=== PATIENT | male | born 1965 | race Caucasian/White ===

== ENCOUNTER 2017-01-07 12:23 | Inpatient (IN) | payer MEDICARE, MEDICAID ==
[~2017-01-07] VITALS: Ht 175.3 cm; Wt 67.7 kg
[~2017-01-07 12:23] MED LIST: AZIT250T74 PO; BISA10SU8 PR; CEFU1TAB43 PO; HYDR-3534 PO; JEVILIQ10 JT; LACT PO; OMEP20TA39 PO; ONDA8 SL
[2017-01-07 12:40] VITALS: BP 125/71; PULSE 79; RESP 16; TEMP 98.4; O2SAT 95
[2017-01-07] MEDS ORDERED: AMOX500C PO (13:01)
[2017-01-07] MEDS ORDERED: HYDR1ELX PO (13:01)
[2017-01-07] MEDS ORDERED: DULC10SU3 RECTAL (13:06)
[2017-01-07] MEDS ORDERED: NEXI20CA PO (13:06)
[2017-01-07] MEDS ORDERED: OXYC1SOL3 GT (13:06)
[2017-01-07] MEDS ORDERED: HYDR-3535 PO (13:06)
--- NOTE | 2017-01-07 13:23 | PD ---
HPI Chief Complaint: Edema Time Seen by Provider: 13:06 Travel History International Travel<30 days: No Contact w/Intl Traveler<30days: No Traveled to known affect area: No History of Present Illness HPI This patient complains of swelling to the right side of his neck and face. Duration 4 days. He continues to worsen despite antibiotics. He has history of head and neck cancer which she has found on biopsy has reoccurred. He gets treatment at [facility]. He had a tracheostomy placed 2 weeks ago at [facility]. He was on Levaquin and clindamycin for a full week when this right sided swelling started. He has not had any fever that they know about. Severity of symptoms is moderate. No alleviating factors. Saw his primary physician 3 days ago and started on amoxicillin which has not helped PFSH Past Medical History Asthma: No Blood Disorders: No Anxiety: Yes Cancer: Yes (LARYNGEAL) Cardiovascular Problems: No Chemotherapy: Yes (2016) COPD: Yes Diminished Hearing: Yes (RT EAR) Gastrointestinal Disorders: Yes (gerd) Glaucoma: No Genitourinary: No Implanted Vascular Access Dvce: No Neurologic: No Psychiatric: No Respiratory: Yes (COPD) Radiation Therapy: No Sleep Apnea: No Past Surgical History Cardiac Surgery: No Ear Surgery: No Endocrine Surgery: No Eye Surgery: No Genitourinary Surgery: No Gynecologic Surgery: No Neurologic Surgery: Yes (LAMINECTOMY) Oral Surgery: No Thoracic Surgery: No Other Surgery: Yes (HEMANGIOMA R HAND) Social History Alcohol Use: No (PT DENIES) Tobacco Use: No Substance Use: No (PT DENIES) Allergies-Medications (Allergen,Severity, Reaction): Coded Allergies: No Known Allergies (Verified , 01/07/17) Reported Meds & Prescriptions Reported Meds & Active Scripts Active Reported Nexium (Esomeprazole DR) 20 Mg Capdr 20 Mg PO DAILY Dulcolax Supp (Bisacodyl) 10 Mg Supp 10 Mg RECTAL DAILY PRN Oxycodone Liq (Oxycodone HCl) 5 Mg/5 Ml Yola 5 Mg GT Q4HRS Lortab (Hydrocodone-Acetaminophen) 10-325 Mg Tab 1-2 Tab PO Q4-6HRS PRN Amoxicillin 500 Mg Cap Unknown Dose PO BID Review of Systems General / Constitutional: No: Fever Eyes: No: Visual changes HENT: No: Headaches Cardiovascular: No: Chest Pain or Discomfort Respiratory: No: Shortness of Breath Gastrointestinal: No: Abdominal Pain Genitourinary: No: Dysuria Musculoskeletal: No: Pain Skin: No Rash Neurologic: No: Weakness Psychiatric: No: Depression Endocrine: No: Polydipsia Hematologic/Lymphatic: No: Easy Bruising Physical Exam Narrative GENERAL: Well-nourished, well-developed patient with facial and neck swelling. SKIN: Warm and dry. HEAD: Atraumatic. Normocephalic. EYES: Pupils equal and round. No scleral icterus. No injection or drainage. ENT: No nasal bleeding or discharge. Mucous membranes pink and moist. Patient has a tracheostomy in place. He has a lot of redness and swelling and induration on the right cheek and right side of the neck. It does come around to the submental region. He cannot open his mouth very much. He will not allow me to evaluate with tongue depressor. I cannot fully evaluate his uvula. NECK: Trachea midline. No JVD. CARDIOVASCULAR: Regular rate and rhythm. No murmur appreciated. RESPIRATORY: No accessory muscle use. Clear to auscultation. Breath sounds equal bilaterally. GASTROINTESTINAL: Abdomen soft, non-tender, nondistended. Hepatic and splenic margins not palpable. MUSCULOSKELETAL: No obvious deformities. No clubbing. No cyanosis. No edema. NEUROLOGICAL: Awake and alert. No obvious cranial nerve deficits. Motor grossly within normal limits. Normal speech. PSYCHIATRIC: Appropriate mood and affect; insight and judgment normal. Data Data Last Documented VS Vital Signs Date Time Temp Pulse Resp B/P Pulse Ox O2 Delivery O2 Flow Rate FiO2 01/07/17 13:53 63 18 105/53 96 01/07/17 12:51 Room Air 01/07/17 12:40 98.4 Orders Iv Access Insert/Monitor (01/07/17 13:18) Complete Blood Count With Diff (01/07/17 13:18) Basic Metabolic Panel (Bmp) (01/07/17 13:18) Prothrombin Time / Inr (Pt) (01/07/17 13:18) Act Partial Throm Time (Ptt) (01/07/17 13:18) Ct Soft Tiss Neck W Iv Cont (01/07/17 ) Iohexol 350 Inj (Omnipaque 350 Inj) (01/07/17 14:39) Admit Order (Ed Use Only) (01/07/17 15:13) Methylprednisolone So Succ Inj (Solumedr (01/07/17 15:15) Vancomycin Inj (Vancomycin Inj) (01/07/17 15:15) Ct Thorax/ Chest W Iv Contrast (01/07/17 ) Labs Laboratory Tests Test 01/07/17 12:55 White Blood Count 5.9 TH/MM3 Red Blood Count 3.02 MIL/MM3 Hemoglobin 8.4 GM/DL Hematocrit 25.4 % Mean Corpuscular Volume 84.1 FL Mean Corpuscular Hemoglobin 27.8 PG Mean Corpuscular Hemoglobin 33.0 % Concent Red Cell Distribution Width 15.2 % Platelet Count 411 TH/MM3 Mean Platelet Volume 6.9 FL Neutrophils (%) (Auto) 77.7 % Lymphocytes (%) (Auto) 12.8 % Monocytes (%) (Auto) 5.7 % Eosinophils (%) (Auto) 1.1 % Basophils (%) (Auto) 2.7 % Neutrophils # (Auto) 4.5 TH/MM3 Lymphocytes # (Auto) 0.8 TH/MM3 Monocytes # (Auto) 0.3 TH/MM3 Eosinophils # (Auto) 0.1 TH/MM3 Basophils # (Auto) 0.2 TH/MM3 CBC Comment AUTO DIFF Differential Comment AUTO DIFF CONFIRMED Prothrombin Time 11.2 SEC Prothromb Time International 1.0 RATIO Ratio Activated Partial 29.4 SEC Thromboplast Time Sodium Level 135 MEQ/L Potassium Level 4.1 MEQ/L Chloride Level 94 MEQ/L Carbon Dioxide Level 34.8 MEQ/L Anion Gap 6 MEQ/L Blood Urea Nitrogen 30 MG/DL Creatinine 1.00 MG/DL Estimat Glomerular Filtration 78 ML/MIN Rate Random Glucose 100 MG/DL Calcium Level 8.7 MG/DL [facility] Medical Decision Making Medical Screen Exam Complete: Yes Emergency Medical Condition: Yes Medical Record Reviewed: Yes Differential Diagnosis Victor M's angina, facial cellulitis, abscess Narrative Course I have reviewed the patient's electronic medical record. Reviewed his radiation oncologist note from June 2016 IV placed CBC shows anemia which is chronic. Metabolic profile shows BUN 30 and creatinine of 1 Coagulation studies are normal Soft tissue CT of the neck with IV contrast showed diffuse edematous change without fluid collection or abscess Also shows mass density in the chest which would be consistent with metastatic disease Patient has worsening of neck edema despite oral antibiotics Not sure this is infectious at all. He has no leukocytosis or fever. There is concern for some SVC syndrome. I've ordered a chest CT with IV contrast His airway is secured with trach Reviewed with hospitalist will admit I gave a dose of vancomycin and Solu-Medrol and 1 L normal saline IV as he is receiving a lot of contrast Diagnosis Primary Impression: Swelling, mass, or lump in head and neck Additional Impression: Hypopharyngeal cancer Admitting Information Admitting Physician Requests: Admit Brown Robbins MD Jan 07, 2017 13:23
[2017-01-07 13:36] LABS: AUTOMATED NEUTROPHIL # 4.5 TH/MM3 (1.8-7.7); BASOPHIL # 0.2 TH/MM3 (0-0.2); BASOPHIL % 2.7 % (0.0-2.0); EOSINOPHIL # 0.1 TH/MM3 (0-0.4); EOSINOPHIL % 1.1 % (0.0-4.0); HEMATOCRIT 25.4 % (39.0-51.0); LYMPH % 12.8 % (9.0-44.0); LYMPHOCYTE # 0.8 TH/MM3 (1.0-4.8); MEAN CELL VOLUME 84.1 FL (80.0-100.0); MEAN CORPUSCULAR HEMOGLOBIN 27.8 PG (27.0-34.0); MONO % 5.7 % (0.0-8.0); NEUT % 77.7 % (16.0-70.0); PLATELET COUNT 411 TH/MM3 (150-450); RED BLOOD COUNT 3.02 MIL/MM3 (4.50-5.90); RED CELL DISTRIBUTION WIDTH 15.2 % (11.6-17.2); WHITE BLOOD COUNT 5.9 TH/MM3 (4.0-11.0)
[2017-01-07 13:42] LABS: POTASSIUM 4.1 MEQ/L (3.5-5.1)
[2017-01-07 13:45] LABS: BICARBONATE 34.8 MEQ/L (21.0-32.0)
[2017-01-07 13:46] LABS: APTT (PATIENT) 29.4 SEC (24.3-30.1); PROTHROMBIN TIME - PATIENT 11.2 SEC (9.8-11.6)
[2017-01-07 13:47] LABS: HEMO FLAGS AUTO DIFF
[2017-01-07 13:53] VITALS: BP 105/53; PULSE 63; RESP 18; O2SAT 96
[2017-01-07 14:07] LABS: SCAN/DIFF AUTO DIFF CONFIRMED
[2017-01-07] MEDS ORDERED: IOHEXOL 350 MG/ML 10 ML VIAL (for RAD DIAG) IV ONE (14:39)
--- NOTE | 2017-01-07 14:51 | RADHPO ---
EXAM DATE/TIME: 01/07/2017 14:22 [facility] COMPARISON: No previous studies available for comparison. INDICATIONS : Right face and neck swelling and pain. Evaluate for abscess. IV CONTRAST: 65 cc Omnipaque 350 (iohexol) IV RADIATION DOSE: 13.03 CTDIvol (mGy) MEDICAL HISTORY : Throat cancer. SURGICAL HISTORY : Tracheostomy. ENCOUNTER: Initial ACUITY: 3 days PAIN SCALE: 8/10 LOCATION: Right neck TECHNIQUE: Volumetric scanning of the neck was performed. Using automated exposure control and adjustment of th e mA and/or kV according to patient size, radiation dose was kept as low as reasonably achievable to obtain optimal diagnostic quality images. FINDINGS: Diffuse edema is seen throughout the neck and face. This is more abundant on the right. There is also edema circumferential in nature involving the pharynx. This causes luminal narrowing of the pharynge al lumen this patient has a tracheostomy tube in place. No abscess is observed. Adenopathy is noted i nvolving the superior and anterior mediastinum. The largest lymph node is posterior to the SVC measur ing 3.4 x 1.9 cm. Severe bullous emphysematous changes are noted within the visualized lung apices. T here is a pleural-based density seen on the barium last image of the exam within the left anterior ch est. CONCLUSION: 1. Diffuse edema throughout the face and neck including pharyngeal edema resulting in narrowing of th e lumen of the pharynx. This patient has a tracheostomy tube. No abscess. 2. Adenopathy involving the superior and anterior mediastinum worrisome for metastatic disease. I hav e no priors to compare. 3. Bolus emphysematous changes within the lung apices. 4. Pleural-based masslike density seen on the last image of the exam within the left upper chest. CT the chest would be needed to further evaluate this. Baldemar Scott Jr., MD on January 07, 2017 at 14:44 Board Certified Radiologist. This report was verified electronically.
[2017-01-07] MEDS ORDERED: methylPREDNISolone SOD SUCC 125 MG/2 ML VIAL IV PUSH ONE (15:15)
[2017-01-07] MEDS ORDERED: VANCOMYCIN INJ 1,000 MG in SODIUM CHLOR 0.9% 250 ML INJ 250 ML IV ONE (15:15)
[2017-01-07] MEDS ORDERED: SODIUM CHLOR 0.9% 1000 ML INJ 1,000 ML IV ONE (15:30)
[2017-01-07] MEDS ORDERED: ACETAMINOPHEN/HYDROcodone 325 MG/10 MG TAB G-TUBE ONE (16:15)
[2017-01-07 16:16] VITALS: BP 119/55
[2017-01-07] MEDS ORDERED: ACETAMINOPHEN/HYDROcodone 325 MG/5 MG TAB PEG PRN (16:45)
[2017-01-07] MEDS ORDERED: ONDANSETRON HCL 4 MG/2 ML VIAL IVP PRN (16:45)
[2017-01-07] MEDS ORDERED: ACETAMINOPHEN 325 MG TAB PEG PRN (16:45)
[2017-01-07] MEDS ORDERED: Vancomycin Consult Pharmacy 1 EA OTHER SCH (16:45)
[2017-01-07] MEDS ORDERED: SODIUM CHLORIDE 0.9% FLUSH 5 ML FLUSH FLUSH PRN (16:45)
[2017-01-07] MEDS ORDERED: MAGNESIUM HYDROXIDE SUSP 30 ML CUP PO PRN (16:45)
[2017-01-07] MEDS ORDERED: MORPHINE SULFATE 4 MG/ML INJ IV PRN (16:45)
[2017-01-07] MEDS ORDERED: NALOXONE HCL 0.4 MG/ML AMP IV PRN (16:45)
[2017-01-07 17:04] VITALS: BP 116/70; PULSE 70; RESP 18; TEMP 97.8; O2SAT 97
[2017-01-07] MEDS: SODIUM CHLOR 0.9% 1000 ML INJ 1,000 ML IV SCH (17:05)
--- NOTE | 2017-01-07 17:28 | RADHPO ---
EXAM DATE/TIME: 01/07/2017 16:51 [facility] COMPARISON: No previous studies available for comparison. INDICATIONS : Mass. RADIATION DOSE: 7.81 CTDIvol (mGy) MEDICAL HISTORY : Chronic obstructive pulmonary disease. Laryngeal cancer. SURGICAL HISTORY : Tracheostomy. ENCOUNTER: Initial ACUITY: 3 days PAIN SCALE: 0/10 LOCATION: chest TECHNIQUE: Volumetric scanning of the chest was performed. Using automated exposure control and adjustment of t he mA and/or kV according to patient size, radiation dose was kept as low as reasonably achievable to obtain optimal diagnostic quality images. FINDINGS: No prior chest CT for comparison. Tracheostomy tube present with tip in satisfactory position. There is moderate emphysema of the left lung especially at the apex. Right lung apex reveals fairly e xtensive bullous changes with surrounding consolidation and air bronchograms. There is also dense con solidation in the left lower lung with several small areas of loculated air within the consolidation that probably represents small lung abscesses. There is patchy airspace disease in both lungs especia lly at the left base and lingular region. There is trace left pleural fluid and pericardial fluid. Mediastinal adenopathy with a 1.9 cm right paratracheal lymph node and borderline enlarged precarinal and subcarinal lymph nodes. No acute findings in the upper abdomen. Gastrostomy tube present. Residual contrast in kidneys. CONCLUSION: 1. Multifocal airspace consolidation in the lungs. This is most severe in the superior segment left l ower lobe with air bronchograms and numerous small locules of air that could represent small abscesse s. There is also dense consolidation around bullous disease at the right lung apex and patchy airspac e disease in the anterior segment left upper lobe and also in the lingula and left lower lobe basilar segments. 2. Moderate emphysema. Tracheostomy in satisfactory position. 3. Mediastinal adenopathy with a 1.9 cm right paratracheal lymph node. Anoop Cornejo MD on January 07, 2017 at 17:17 Board Certified Radiologist. This report was verified electronically.
--- NOTE | 2017-01-07 17:36 | HHI.HP ---
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 History is obtained per the patient and his at bedside. Patient states that he underwent a tracheostomy tube weeks ago at [facility] and was placed on Levaquin and clindamycin prophylactically to prevent infection. He was almost finished with those antibiotics when on Wednesday 4 days prior to admission he started to develop swelling of his cheek as well as redness and pain. He states that the redness comes and goes but the swelling has remained and is painful. He saw his primary care physician on Wednesday who prescribed him amoxicillin. However the patient was not improving so he came to the ER. He denies fever or chills. The patient denies any dental pain. The patient has a PEG tube and is strictly nothing by mouth. The patient was recently reevaluated at [facility] and sees an ENT doctor by the name of Dr. HERNANDEZ" office phone number [phone]. The patient last underwent radiation in March 2016. Apparently in 2014 he had been offered a radical laryngectomy however opted to go with radiation. He was seen by Dr. Guadarrama via an his office in March 2016 and at that point was planning to follow-up with [facility]. The patient states he's not had any further radiation since then but has had 2 hospitalizations for aspiration pneumonia. He states the PEG was placed in 2015. The patient also states that he tends to have bleeding from the trach site and that he will cough up blood whenever he takes Motrin. Patient denies any dyspnea. The patient states that Dr. Zenon Brice is planning on doing a laryngectomy on January 22 if the patient can put on 10 pounds of weight by then. He has been taking Jevity TwoCal in order to gain weight and states it has been working. The patient states that he recently had workup which excluded any kind of mass in his lungs however neck CT here showed possible left upper lobe neck mass and I have ordered a chest CT to evaluate. Past Family Social History Past Surgical History PEG Tracheostomy 2 weeks ago [id number] which was removed in 2009 Allergies: Coded Allergies: No Known Allergies (Verified , 01/07/17) Physical Exam Vital Signs Vital Signs Date Time Temp Pulse Resp B/P Pulse Ox O2 Delivery O2 Flow Rate FiO2 01/07/17 17:04 97.8 70 18 116/70 97 01/07/17 16:16 112 16 119/55 93 01/07/17 13:53 63 18 105/53 96 01/07/17 12:51 16 95 Room Air 01/07/17 12:40 98.4 79 16 125/71 95 Physical Exam GENERAL: Lean male patient. SKIN: Warm and dry. HEAD: Normocephalic. EYES: No scleral icterus. No injection or drainage. Head and neck : He has swelling of the right cheek and induration of the jawline and right neck with some erythema over the neck and he is tender to palpation. He is able to open his mouth and he has caries however no obvious abscesses. Tracheostomy in place and the os appears clean. trachea is midline. CARDIOVASCULAR: Regular rate and rhythm without murmurs, gallops, or rubs. RESPIRATORY: Breath sounds equal bilaterally. No accessory muscle use. GASTROINTESTINAL: Abdomen soft, non-tender, nondistended. EXTREMITIES: No cyanosis, or edema. NEUROLOGICAL: Awake, alert, and oriented x 3. Non-focal. Laboratory Laboratory Tests Test 01/07/17 12:55 White Blood Count 5.9 Red Blood Count 3.02 Hemoglobin 8.4 Hematocrit 25.4 Mean Corpuscular Volume 84.1 Mean Corpuscular Hemoglobin 27.8 Mean Corpuscular Hemoglobin 33.0 Concent Red Cell Distribution Width 15.2 Platelet Count 411 Mean Platelet Volume 6.9 Neutrophils (%) (Auto) 77.7 Lymphocytes (%) (Auto) 12.8 Monocytes (%) (Auto) 5.7 Eosinophils (%) (Auto) 1.1 Basophils (%) (Auto) 2.7 Neutrophils # (Auto) 4.5 Lymphocytes # (Auto) 0.8 Monocytes # (Auto) 0.3 Eosinophils # (Auto) 0.1 Basophils # (Auto) 0.2 CBC Comment AUTO DIFF Differential Comment AUTO DIFF CONFIRMED Prothrombin Time 11.2 Prothromb Time International 1.0 Ratio Activated Partial 29.4 Thromboplast Time Sodium Level 135 Potassium Level 4.1 Chloride Level 94 Carbon Dioxide Level 34.8 Anion Gap 6 Blood Urea Nitrogen 30 Creatinine 1.00 Estimat Glomerular Filtration 78 Rate Random Glucose 100 Calcium Level 8.7 Result Diagram: 01/07/17 1255 01/07/17 1255 Assessment and Plan Assessment and Plan -Cellulitis and swelling of the right face and neck. Neck CT showed subcutaneous edema and no abscess. He has no swelling of the arms to suggest superior vena cava syndrome. -Squamous cell laryngeal neck cancer. The patient states that Dr. Zenon Brice is planning on doing a laryngectomy on January 22 if the patient can put on 10 pounds of weight by then. He has been taking Jevity TwoCal in order to gain weight and states it has been working. The patient states that he recently had workup which excluded any kind of mass in his lungs however neck CT here showed possible left upper lobe neck mass and I have ordered a chest CT to evaluate. -Dysphagia and moderate malnutrition. Continue tube feeds. -Continue pain control with Lortab. The PEG. -Emphysema/COPD. Not currently an issue. -Anemia. We'll repeat CBC in the morning to ensure stability. -DVT prophylaxis with SCDs. Full CODE STATUS. Amira Jett MD Jan 07, 2017 17:36
[2017-01-07 20:00] VITALS: BP 124/68; PULSE 80; RESP 20; TEMP 98.5; O2SAT 99
[2017-01-07] MEDS: DEXAMETHASONE SOD PHOS 4 MG/ML VIAL IV PUSH SCH (20:22)
[2017-01-07] MEDS: DOCUSATE SODIUM 100 MG CAP PEG SCH (20:23)
[2017-01-07] MEDS: ACETAMINOPHEN/HYDROcodone 325 MG/10 MG TAB PEG PRN (20:23)
[2017-01-07] MEDS: SODIUM CHLORIDE 0.9% FLUSH 5 ML FLUSH FLUSH SCH (20:23)
[2017-01-08] VITALS: BP 103/59; PULSE 65; RESP 20; TEMP 98.7; O2SAT 99
[2017-01-08] MEDS: ACETAMINOPHEN/HYDROcodone 325 MG/10 MG TAB PEG PRN ×4 (02:24→21:34)
[2017-01-08] MEDS: SODIUM CHLOR 0.9% 1000 ML INJ 1,000 ML IV SCH ×3 (02:36→22:36)
[2017-01-08 06:41] LABS: AUTOMATED NEUTROPHIL # 4.8 TH/MM3 (1.8-7.7); BASOPHIL % 0.1 % (0.0-2.0); EOSINOPHIL % 0.1 % (0.0-4.0); HEMATOCRIT 24.2 % (39.0-51.0); HEMO FLAGS DIFF FINAL; LYMPH % 9.1 % (9.0-44.0); LYMPHOCYTE # 0.5 TH/MM3 (1.0-4.8); MEAN CELL VOLUME 84.8 FL (80.0-100.0); MEAN CORPUSCULAR HEMOGLOBIN 27.6 PG (27.0-34.0); MEAN CORPUSCULAR HGB CONC 32.6 % (32.0-36.0); MONO % 1.1 % (0.0-8.0); NEUT % 89.6 % (16.0-70.0); PLATELET COUNT 458 TH/MM3 (150-450); RED BLOOD COUNT 2.86 MIL/MM3 (4.50-5.90); RED CELL DISTRIBUTION WIDTH 15.6 % (11.6-17.2); WHITE BLOOD COUNT 5.4 TH/MM3 (4.0-11.0)
[2017-01-08 06:51] LABS: POTASSIUM 4.3 MEQ/L (3.5-5.1)
[2017-01-08 06:53] LABS: BICARBONATE 31.3 MEQ/L (21.0-32.0)
[2017-01-08 08:00] VITALS: BP 98/61; PULSE 61; RESP 20; TEMP 96.9; O2SAT 96
[2017-01-08] MEDS: SODIUM CHLORIDE 0.9% FLUSH 5 ML FLUSH FLUSH SCH ×2 (08:48→21:00)
[2017-01-08] MEDS: DEXAMETHASONE SOD PHOS 4 MG/ML VIAL IV PUSH SCH ×2 (08:49→21:35)
[2017-01-08] MEDS: VANCOMYCIN 1,000 MG/NS 250 ML IV SCH ×2 (08:49)
[2017-01-08] MEDS: DOCUSATE SODIUM 100 MG CAP PEG SCH ×2 (08:51→21:34)
[2017-01-08] MEDS: PANTOPRAZOLE SOD 20 MG DELAYED RELEASE TAB PO SCH (08:51)
[2017-01-08 12:00] VITALS: BP 112/69; PULSE 74; RESP 20; TEMP 97.8; O2SAT 96
[2017-01-08] MEDS: AMPICILLIN-SULBACTAM INJ 3 GM in SODIUM CHLORIDE 0.9% INJ 100 ML IV SCH ×2 (14:01→21:34)
[2017-01-08 16:00] VITALS: BP 124/68; PULSE 77; RESP 20; TEMP 97.2; O2SAT 100
--- NOTE | 2017-01-08 16:12 | HHI.PR ---
Subjective Remarks Late entry. Patient was seen several times this afternoon. The patient denies fever or chills. He states his facial swelling is improved and the pain is greatly improved. He denies dyspnea. Objective Vitals Vital Signs Date Time Temp Pulse Resp B/P Pulse Ox O2 Delivery O2 Flow Rate FiO2 01/08/17 12:00 97.8 74 20 112/69 96 01/08/17 08:00 96.9 61 20 98/61 96 01/08/17 00:00 98.7 65 20 103/59 99 01/07/17 20:00 98.5 80 20 124/68 99 01/07/17 17:04 97.8 70 18 116/70 97 01/07/17 16:16 112 16 119/55 93 I/O 01/07/17 01/07/17 01/07/17 01/08/17 01/08/17 01/08/17 07:00 15:00 23:00 07:00 15:00 23:00 Intake Total 1310 ml 0 ml Balance 1310 ml 0 ml Intake Oral 60 ml 0 ml IV Total 1250 ml # Voids 3 1 # Bowel Movements 0 1 Result Diagram: 01/08/17 0600 01/08/17 0600 Imaging Last Impressions Neck CT 01/07/17 0000 Signed Impressions: Service Date/Time: December 14:22 - CONCLUSION: 1. Diffuse edema throughout the face and neck including pharyngeal edema resulting in narrowing of the lumen of the pharynx. This patient has a tracheostomy tube. No abscess. 2. Adenopathy involving the superior and anterior mediastinum worrisome for metastatic disease. I have no priors to compare. 3. Bolus emphysematous changes within the lung apices. 4. Pleural-based masslike density seen on the last image of the exam within the left upper chest. CT the chest would be needed to further evaluate this. Baldemar Scott Jr., MD Chest CT 01/07/17 0000 Signed Impressions: Service Date/Time: December 16:51 - CONCLUSION: 1. Multifocal airspace consolidation in the lungs. This is most severe in the superior segment left lower lobe with air bronchograms and numerous small locules of air that could represent small abscesses. There is also dense consolidation around bullous disease at the right lung apex and patchy airspace disease in the anterior segment left upper lobe and also in the lingula and left lower lobe basilar segments. 2. Moderate emphysema. Tracheostomy in satisfactory position. 3. Mediastinal adenopathy with a 1.9 cm right paratracheal lymph node. Anoop Cornejo MD Objective Remarks GENERAL: Lean male patient. SKIN: Warm and dry. HEAD: Normocephalic. EYES: No scleral icterus. No injection or drainage. Head and neck : He has swelling of the right cheek and induration of the jawline and right neck however this is greatly decreased today and the erythema over the neck and jawline is nearly resolved. He is also less tender to palpation. Tracheostomy in place and the os appears clean. trachea is midline. CARDIOVASCULAR: Regular rate and rhythm without murmurs, gallops, or rubs. RESPIRATORY: Breath sounds equal bilaterally. No accessory muscle use. GASTROINTESTINAL: Abdomen soft, non-tender, nondistended. EXTREMITIES: No cyanosis, or edema. NEUROLOGICAL: Awake, alert, and oriented x 3. Non-focal. A/P Assessment and Plan -Cellulitis and swelling of the right face and neck. Neck CT showed subcutaneous edema and no abscess. Clinically much improved today. Continue vancomycin. -Squamous cell laryngeal neck cancer. The patient states that Dr. Zenon Brice is planning on doing a laryngectomy on January 22 if the patient can put on 10 pounds of weight by then. I discussed the patient with his ear nose and throat surgeon today Dr. HERNANDEZ" (Allan) at [facility] phone number [phone]. -Aspiration pneumonia. Chest CT showing multifocal airspace consolidations most pronounced in the left lower lobe and RUL, also severe bullous emphysema, also numerous small locules of air that could represent small abscesses. The patient does have productive cough but no dyspnea or leukocytosis. I will start him on ampicillin and sulfabactam IV and continue the vancomycin IV. We' ll check a sputum culture. I did discuss with radiology Dr. Slim Jesus who did not feel that the lesions on the chest CT were abscesses and for not large enough to drain and the patient would certainly be high risk for a thoracentesis given his bullous emphysema. I discussed as well with his ear nose and throat physician Dr. VALADEZ at [facility] and we will plan for a four-week course of antibiotics, and I will check a sputum culture. If he does not improve with antibiotic therapy he may need a bronchoscopy. Dr. STEPHENS we'll see him in his clinic about a week before his surgery is due and will repeat imaging at that time. -Dysphagia and moderate malnutrition. Continue tube feeds. -Continue pain control with Lortab. -Emphysema/COPD. Not currently an issue. -Anemia. We'll repeat CBC in the morning. Transfuse when necessary hemoglobin less than 7. I will check an iron profile. -DVT prophylaxis with SCDs. Full CODE STATUS. Amira Jett MD Jan 08, 2017 16:12
[2017-01-08 20:00] VITALS: BP 115/68; PULSE 70; RESP 18; TEMP 98.1; O2SAT 97
[2017-01-09] VITALS: BP 121/72; PULSE 68; RESP 18; TEMP 97.8; O2SAT 96
[2017-01-09] MEDS: AMPICILLIN-SULBACTAM INJ 3 GM in SODIUM CHLORIDE 0.9% INJ 100 ML IV SCH ×2 (02:29→07:55)
[2017-01-09] MEDS: ACETAMINOPHEN/HYDROcodone 325 MG/10 MG TAB PEG PRN ×5 (02:29→22:49)
[2017-01-09] MEDS: VANCOMYCIN 1,000 MG/NS 250 ML IV SCH ×2 (03:44)
[2017-01-09] MEDS: SODIUM CHLOR 0.9% 1000 ML INJ 1,000 ML IV SCH (07:56)
[2017-01-09] MEDS: DEXAMETHASONE SOD PHOS 4 MG/ML VIAL IV PUSH SCH (07:57)
[2017-01-09 08:00] VITALS: BP 131/73; PULSE 65; RESP 17; TEMP 98.5; O2SAT 98
[2017-01-09] MEDS: DOCUSATE SODIUM 100 MG CAP PEG SCH ×2 (09:00→20:40)
[2017-01-09] MEDS: SODIUM CHLORIDE 0.9% FLUSH 5 ML FLUSH FLUSH SCH ×2 (09:00→20:42)
[2017-01-09] MEDS: PANTOPRAZOLE SOD 20 MG DELAYED RELEASE TAB PO SCH (09:00)
[2017-01-09 12:00] VITALS: BP 130/70; PULSE 71; RESP 19; TEMP 98.2; O2SAT 95
--- NOTE | 2017-01-09 13:38 | HHI.PR ---
Subjective Remarks Patient is doing well. He states the swelling erythema and pain of the right side of his face have resolved. Objective Vitals Vital Signs Date Time Temp Pulse Resp B/P Pulse Ox O2 Delivery O2 Flow Rate FiO2 01/09/17 12:00 98.2 71 19 130/70 95 01/09/17 08:55 20 01/09/17 08:00 98.5 65 17 131/73 98 01/09/17 00:00 97.8 68 18 121/72 96 01/08/17 20:00 98.1 70 18 115/68 97 01/08/17 16:00 97.2 77 20 124/68 100 I/O 01/08/17 01/08/17 01/08/17 01/09/17 01/09/17 01/09/17 07:00 15:00 23:00 07:00 15:00 23:00 Intake Total 0 ml 360 ml Balance 0 ml 360 ml Intake Oral 0 ml 360 ml # Voids 1 5 # Bowel Movements 1 0 Result Diagram: 01/08/17 0601/08/17 0600 Objective Remarks GENERAL: Lean male patient. SKIN: Warm and dry. HEAD: Normocephalic. EYES: No scleral icterus. No injection or drainage. Head and neck : The previous swelling of the right cheek and jaw have essentially resolved. No further erythema. He does have hardening of the skin of the right superior neck which he states is chronic and at the site of the initial cancer. No tenderness to palpation. Tracheostomy in place and the os appears clean. trachea is midline. CARDIOVASCULAR: Regular rate and rhythm without murmurs, gallops, or rubs. RESPIRATORY: Breath sounds equal bilaterally. Lung sounds are clear bilaterally. No accessory muscle use. GASTROINTESTINAL: Abdomen soft, non-tender, nondistended. EXTREMITIES: No cyanosis, or edema. NEUROLOGICAL: Awake, alert, and oriented x 3. Non-focal. A/P Assessment and Plan -Cellulitis and swelling of the right face and neck. Essentially resolved today. Neck CT showed subcutaneous edema and no abscess. Discontinue vancomycin. Start Zyvox by mouth. Patient failed outpatient treatment with amoxicillin and clindamycin thus MRSA is suspected. -Squamous cell laryngeal neck cancer. The patient states that Dr. Zenon Brice is planning on doing a laryngectomy on January 22 if the patient can put on 10 pounds of weight by then. I discussed the patient with his ear nose and throat surgeon Dr. HERNANDEZ" (Allan) at [facility] phone number [phone]. -Aspiration pneumonia. Chest CT showing multifocal airspace consolidations most pronounced in the left lower lobe and RUL, also severe bullous emphysema, also numerous small locules of air that could represent small abscesses. The patient does have productive cough but no dyspnea or leukocytosis. Follow-up sputum culture. I did discuss with radiology Dr. Slim Jesus who did not feel that the lesions on the chest CT were abscesses and for not large enough to drain and the patient would certainly be high risk for a thoracentesis given his bullous emphysema. I discussed as well with his ear nose and throat physician Dr. STEPHENS at [facility] and we will plan for a four-week course of antibiotics with Augmentin by mouth, and I will check a sputum culture. Dr. STEPHENS we'll see him in his clinic about a week before his surgery is due and will repeat imaging at that time. -Dysphagia and moderate malnutrition. Continue tube feeds. -Continue pain control with Lortab. -Emphysema/COPD. Not currently an issue. -Anemia. Iron profile and ferritin are pending. Repeat hemoglobin today and in the morning. Transfuse when necessary hemoglobin less than 7. -DVT prophylaxis with SCDs. Full CODE STATUS. Discharge Planning Discharge home in 1-2 days anticipated. Amira Jett MD Jan 09, 2017 13:37
[2017-01-09] MEDS ORDERED: ZYVO600T PO (14:40)
[2017-01-09] MEDS: AMOXICILLIN/CLAVULANATE K 875 MG TAB PO SCH ×2 (15:14→20:40)
[2017-01-09 16:00] VITALS: BP 128/80; PULSE 81; RESP 20; TEMP 97.8; O2SAT 94
[2017-01-09 16:50] LABS: TRANSFERRIN IRON PROFILE 158 MG/DL (200-360)
[2017-01-09 16:53] LABS: FERRITIN 313 NG/ML (26-388)
[2017-01-09 20:09] VITALS: BP 122/71; PULSE 55; RESP 20; TEMP 98.1; O2SAT 98
[2017-01-09] MEDS: LINEZOLID 600 MG TAB PO SCH (20:40)
[2017-01-09] MEDS: LACTOBACILLUS ACIDOPHILUS TAB PEG SCH (20:40)
[2017-01-09] MEDS ORDERED: PHARMACY ORDERED LAB XX ONE (20:45)
[2017-01-10 00:21] VITALS: BP 104/56; PULSE 78; RESP 20; TEMP 98; O2SAT 99
[2017-01-10] MEDS: ACETAMINOPHEN/HYDROcodone 325 MG/10 MG TAB PEG PRN ×2 (02:55→07:39)
[2017-01-10] MEDS: LACTOBACILLUS ACIDOPHILUS TAB PEG SCH (07:38)
[2017-01-10] MEDS: AMOXICILLIN/CLAVULANATE K 875 MG TAB PO SCH (07:38)
[2017-01-10] MEDS: LINEZOLID 600 MG TAB PO SCH (07:38)
[2017-01-10] MEDS: DOCUSATE SODIUM 100 MG CAP PEG SCH (07:39)
[2017-01-10] MEDS: PANTOPRAZOLE SOD 20 MG DELAYED RELEASE TAB PO SCH (07:39)
[2017-01-10] MEDS: SODIUM CHLORIDE 0.9% FLUSH 5 ML FLUSH FLUSH SCH (07:40)
[2017-01-10 08:00] VITALS: BP 123/75; PULSE 52; RESP 18; TEMP 98.6; O2SAT 100
[2017-01-10 08:03] LABS: HEMATOCRIT 28.5 % (39.0-51.0); REVIEW FLAG FINAL
[2017-01-10 12:00] VITALS: BP 100/69; PULSE 70; RESP 18; TEMP 98.3; O2SAT 98
[2017-01-10] MEDS ORDERED: FERROUS SULFATE 300 MG /5ML UDC PEG SCH (12:00)
[2017-01-10] MEDS ORDERED: AMOX875T2 PO (12:31)
[2017-01-10] MEDS ORDERED: FERR300S PEG (12:31)
--- NOTE | 2017-01-10 12:37 | HHI.DS ---
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 History is obtained per the patient and his at bedside. Patient states that he underwent a tracheostomy tube weeks ago at [facility] and was placed on Levaquin and clindamycin prophylactically to prevent infection. He was almost finished with those antibiotics when on Wednesday 4 days prior to admission he started to develop swelling of his cheek as well as redness and pain. He states that the redness comes and goes but the swelling has remained and is painful. He saw his primary care physician on Wednesday who prescribed him amoxicillin. However the patient was not improving so he came to the ER. He denies fever or chills. The patient denies any dental pain. The patient has a PEG tube and is strictly nothing by mouth. The patient was recently reevaluated at [facility] and sees an ENT doctor by the name of Dr. HERNANDEZ" office phone number [phone]. The patient last underwent radiation in March 2016. Apparently in 2014 he had been offered a radical laryngectomy however opted to go with radiation. He was seen by Dr. Guadarrama via an his office in March 2016 and at that point was planning to follow-up with [facility]. The patient states he's not had any further radiation since then but has had 2 hospitalizations for aspiration pneumonia. He states the PEG was placed in 2015. The patient also states that he tends to have bleeding from the trach site and that he will cough up blood whenever he takes Motrin. Patient denies any dyspnea. The patient states that Dr. Zenon Brice is planning on doing a laryngectomy on January 22 if the patient can put on 10 pounds of weight by then. He has been taking Jevity TwoCal in order to gain weight and states it has been working. The patient states that he recently had workup which excluded any kind of mass in his lungs however neck CT here showed possible left upper lobe neck mass and I have ordered a chest CT to evaluate. CBC/BMP: 01/10/17 0800 01/08/17 0600 Significant Findings Laboratory Tests Test 01/07/17 01/08/17 01/09/17 01/10/17 12:55 06:00 14:20 08:00 Red Blood Count 3.02 MIL/MM3 2.86 MIL/MM3 (4.50-5.90) (4.50-5.90) Hemoglobin 8.4 GM/DL 7.9 GM/DL 8.8 GM/DL 8.9 GM/DL (13.0-17.0) (13.0-17.0) (13.0-17.0) (13.0-17.0) Hematocrit 25.4 % 24.2 % 28.5 % (39.0-51.0) (39.0-51.0) (39.0-51.0) Mean Platelet Volume 6.9 FL 6.9 FL (7.0-11.0) (7.0-11.0) Neutrophils (%) (Auto) 77.7 % 89.6 % (16.0-70.0) (16.0-70.0) Basophils (%) (Auto) 2.7 % (0.0-2.0) Lymphocytes # (Auto) 0.8 TH/MM3 0.5 TH/MM3 (1.0-4.8) (1.0-4.8) Sodium Level 135 MEQ/L (136-145) Chloride Level 94 MEQ/L (98-107) Carbon Dioxide Level 34.8 MEQ/L (21.0-32.0) Blood Urea Nitrogen 30 MG/DL (7-18) 28 MG/DL (7-18) Estimat Glomerular Filtration 78 ML/MIN (>89) Rate Platelet Count 458 TH/MM3 (150-450) Random Glucose 116 MG/DL (74-106) Iron Level 38 MCG/DL (65-175) Total Iron Binding Capacity 221 MCG/DL (250-450) Percent Iron Saturation 17.2 % (20-50) Imaging Last Impressions Neck CT 01/07/17 0000 Signed Impressions: Service Date/Time: December 14:22 - CONCLUSION: 1. Diffuse edema throughout the face and neck including pharyngeal edema resulting in narrowing of the lumen of the pharynx. This patient has a tracheostomy tube. No abscess. 2. Adenopathy involving the superior and anterior mediastinum worrisome for metastatic disease. I have no priors to compare. 3. Bolus emphysematous changes within the lung apices. 4. Pleural-based masslike density seen on the last image of the exam within the left upper chest. CT the chest would be needed to further evaluate this. Baldemar Scott Jr., MD Chest CT 01/07/17 0000 Signed Impressions: Service Date/Time: December 16:51 - CONCLUSION: 1. Multifocal airspace consolidation in the lungs. This is most severe in the superior segment left lower lobe with air bronchograms and numerous small locules of air that could represent small abscesses. There is also dense consolidation around bullous disease at the right lung apex and patchy airspace disease in the anterior segment left upper lobe and also in the lingula and left lower lobe basilar segments. 2. Moderate emphysema. Tracheostomy in satisfactory position. 3. Mediastinal adenopathy with a 1.9 cm right paratracheal lymph node. Anoop Cornejo MD PE at Discharge GENERAL: Lean male patient. SKIN: Warm and dry. HEAD: Normocephalic. EYES: No scleral icterus. No injection or drainage. Head and neck : The previous swelling of the right cheek and jaw have essentially resolved. No further erythema. He does have hardening of the skin of the right superior neck which he states is chronic and at the site of the initial cancer. No tenderness to palpation. Tracheostomy in place and the os appears clean. trachea is midline. CARDIOVASCULAR: Regular rate and rhythm without murmurs, gallops, or rubs. RESPIRATORY: Breath sounds equal bilaterally. Lung sounds are clear bilaterally. No accessory muscle use. GASTROINTESTINAL: Abdomen soft, non-tender, nondistended. EXTREMITIES: No cyanosis, or edema. NEUROLOGICAL: Awake, alert, and oriented x 3. Non-focal. Pt update on day of discharge The patient feels well. No further redness or pain of the right cheek. No fevers. No dyspnea. He wants to go home. Hospital Course The patient was admitted for Cellulitis and swelling of the right face and neck. This essentially resolved by the third day of IV vancomycin. I transitioned him to Zyvox by mouth yesterday. Patient failed outpatient treatment with amoxicillin and clindamycin thus MRSA is suspected. While he was hospitalized he obtained a chest CT as the neck CT showed a possible mass in the left upper lobe. Chest CT showing multifocal airspace consolidations most pronounced in the left lower lobe and RUL, also severe bullous emphysema, also numerous small locules of air that could represent small abscesses. The patient does have productive cough but no dyspnea or leukocytosis. Sputum culture grew normal respiratory love. I did discuss with radiology Dr. Slim Jesus who did not feel that the lesions on the chest CT were abscesses but more consistent with emphysema and for not large enough to drain and the patient would certainly be high risk for a thoracentesis given his bullous emphysema. The patient's clinical picture is consistent with aspiration pneumonia. I discussed as well with his ear nose and throat physician Dr. STEPHENS (Allan) at [facility] phone number [phone] and we will plan for a four-week course of antibiotics with Augmentin by mouth. Dr. STEPHENS we'll see him in his clinic about a week before his surgery is due and will repeat imaging at that time. The patient also was found to be anemic with stable hemoglobin around 9. Ferritin level was normal however iron was low. The patient states he is supposed to be on iron at home but had difficulty crushing the pills. I've placed him on liquid iron supplementation per his PEG. Plan of care was discussed in detail with the patient and his at bedside. He is to return to the ER should he develop recurrent redness or swelling of the right cheek. He is also to return to the ER should he develop fever, or dyspnea. Pt Condition on Discharge: Stable Discharge Disposition: Discharge Home Discharge Time: > 30 minutes Discharge Instructions DIET: Follow Instructions for: Nothing By Mouth, On Tube Feeding Activities you can perform: Regular-No Restrictions Follow up Referrals: Ear Nose Throat - [address] HERNANDEZ" New Medications: Amoxicillin-Clavulanate (Amoxicillin-Clavulanate) 875-125 mg Tab 875 MG PO Q12HR aspiration pneumonia #56 TAB Ferrous Sulfate Liq (Ferrous Sulfate Liq) 300 Mg/5 Ml Soln 300 MG PEG BID anemia Days 30 BOTTLE Linezolid (Zyvox) 600 Mg Tab 600 MG PO Q12HR infection Days 7 TAB Continued Medications: Bisacodyl Supp (Dulcolax Supp) 10 Mg Supp 10 MG RECTAL DAILY PRN CONSTIPATION #12 Ref [address] (Nexium) 20 Mg Capdr 20 MG PO DAILY Ref 0 CAP Hydrocodone-Acetaminophen (Lortab) 10-325 Mg Tab 1-2 TAB PO Q4-6HRS PRN PAIN Ref 0 TAB Discontinued Medications: Amoxicillin (Amoxicillin) 500 Mg Cap Unknown Dose PO BID Infection Ref 0 CAP Amira Jett MD Jan 10, 2017 12:37
== END 2017-01-10 13:09 | disposition home or self-care (01) | DRG 178 ==
LOC: PHED 12:23 → PHEDA 15:14 → PH3B 16:25
PROVIDERS: ADMIT Family Medicine; ATTEND Family Medicine
DX: J69.0 Pneumonitis due to inhalation of food and vomit (principal); L03.211 Cellulitis of face; Z93.0 Tracheostomy status; E44.0 Moderate protein-calorie malnutrition; C13.9 Malignant neoplasm of hypopharynx, unspecified; R13.10 Dysphagia, unspecified; J44.9 Chronic obstructive pulmonary disease, unspecified; Z93.1 Gastrostomy status; F41.9 Anxiety disorder, unspecified; H91.91 Unspecified hearing loss, right ear; K21.9 Gastro-esophageal reflux disease without esophagitis; K02.9 Dental caries, unspecified; D50.9 Iron deficiency anemia, unspecified
CPT/HCPCS: 70491; 71250; 80048; 82728; 83540; 83550; 85014; 85018; 85025; 85610; 85730; 87070; 87205; J0295; J1100; J2930; J3370; J7030; J7050; Q9967

== ENCOUNTER 2017-07-22 20:37 | Emergency (ER) | payer MEDICARE, MEDICAID ==
[~2017-07-22] VITALS: Ht 177.8 cm; Wt 74.0 kg
[~2017-07-22 20:37] MED LIST changes: +AMOX875T2 PO; -AZIT250T74 PO; -BISA10SU8 PR; -CEFU1TAB43 PO; +DULC10SU3 RECTAL; +FERR300S PEG; -HYDR-3534 PO; +HYDR-3535 PO; -JEVILIQ10 JT; -LACT PO; +NEXI20CA PO; -OMEP20TA39 PO; -ONDA8 SL; +OXYC1SOL3 GT; +ZYVO600T PO
[2017-07-22 21:05] VITALS: BP 152/87; PULSE 77; RESP 18; TEMP 98.7; O2SAT 98
[2017-07-22] MEDS ORDERED: PROPARACAINE HCL 0.5% OPHT SOLN 15 ML BTL RIGHT EYE ONE (22:00)
--- NOTE | 2017-07-22 22:18 | PD ---
HPI Chief Complaint: Eye Problems/Injury Time Seen by Provider: 21:54 Travel History International Travel<30 days: No Contact w/Intl Traveler<30days: No Traveled to known affect area: No History of Present Illness HPI 52-year-old male presents to the emergency room for evaluation of foreign body to his left eye. Patient states he was cleaning his grill and a piece of rust flung into his eye. Try to flush it out without success. This happened several hours prior to arrival. He denies significant pain, photophobia, or changes in visual acuity. Patient states he has chronic visual acuity problems because of 60 treatments in the hyperbaric chamber. He has an textile slitting machine operator at [facility] that they are closed today. States his last tetanus was within one year. PFSH Past Medical History Arthritis: No Asthma: No Autoimmune Disease: No Blood Disorders: No Anxiety: Yes Cancer: Yes (Laryngeal) Cardiovascular Problems: No Chemotherapy: Yes (2016) COPD: Yes Diabetes: No Diminished Hearing: Yes (Rt. ear) Endocrine: No Gastrointestinal Disorders: Yes (gerd) GERD: Yes Glaucoma: No Genitourinary: No Hiatal Hernia: No Immune Disorder: No Implanted Vascular Access Dvce: No Musculoskeletal: Yes Neurologic: No Psychiatric: No Reproductive: No Respiratory: Yes (COPD) Radiation Therapy: Yes Sickle Cell Disease: No Sleep Apnea: No Thyroid Disease: No Ulcer: No Tetanus Vaccination: < 5 Years Influenza Vaccination: No Past Surgical History Abdominal Surgery: No Cardiac Surgery: No Ear Surgery: No Endocrine Surgery: No Eye Surgery: No Genitourinary Surgery: No Gynecologic Surgery: No Neurologic Surgery: Yes (Laminectomy) Oral Surgery: No Thoracic Surgery: No Other Surgery: Yes (Trach, skin graft left thigh, muscle graft left chest ) Social History Alcohol Use: No Tobacco Use: No Substance Use: No Allergies-Medications (Allergen,Severity, Reaction): Coded Allergies: No Known Allergies (Verified , 07/22/17) Reported Meds & Prescriptions Reported Meds & Active Scripts Active Erythromycin Opth Oint 5 Mg/Gm Oint 1 Applic LEFT EYE QID Reported Lortab (Hydrocodone-Acetaminophen) 10-325 Mg Tab 1-2 Tab PO Q4-6HRS PRN Review of Systems Except as stated in HPI: all other systems reviewed are Neg Physical Exam Narrative GENERAL: Well-nourished, well-developed male in no acute distress. Afebrile. Ambulatory. SKIN: Focused skin assessment warm/dry. HEAD: Normocephalic. EYES: PERRL, EOMI without pain. Mild injection of the left eye. No drainage. No scleral icterus. Positive red light reflex. Visual acuity is 20/100 and the right and 20/50 in the left. Fluorescein stain reveals a small foreign body at the 5 o'clock position of the left cornea. Negative Esau sign. NECK: Supple, trachea midline. No JVD or lymphadenopathy. CARDIOVASCULAR: Regular rate and rhythm without murmurs, gallops, or rubs. RESPIRATORY: Breath sounds equal bilaterally. No accessory muscle use. PSYCHIATRIC: No delusional thought processes. No hallucinations. Data Data Last Documented VS Vital Signs Date Time Temp Pulse Resp B/P (MAP) Pulse Ox O2 Delivery O2 Flow Rate FiO2 07/22/17 21:05 98.7 77 18 152/87 (108) 98 Orders Orders Proparacaine 0.5% Opth Soln (Alcaine 0.5 (07/22/17 22:00) MDM Medical Decision Making Medical Screen Exam Complete: Yes Emergency Medical Condition: Yes Medical Record Reviewed: Yes Differential Diagnosis Conjunctivitis, foreign body, rust ring Narrative Course 52-year-old male presents to the emergency room for evaluation of foreign body to his left eye that occurred several hours prior to arrival. Patient states he was cleaning his grill and a piece of rust flung into his eye. He tried to wash it out without success. Denies significant pain, changes in visual acuity , or photophobia. Physical exam reveals a foreign body at the 5 o'clock position of the left cornea. Visual acuity is 20/100 and the right and 20/50 in the left. Negative Esau sign. Eye was numbed and foreign body removal was attempted. There was a retained rust ring for which patient was told to follow-up with an fire marshal. He plans to make an appointment tomorrow. Discharged with erythromycin ointment. He was told to return for worsening symptoms. He understands and agrees to plan. Diagnosis Primary Impression: Foreign body of left eye Qualified Codes: T15.92XA - Foreign body on external eye, part unspecified, left eye, initial encounter Referrals: Solar Design Engineer Additional Instructions: Rest and drink plenty of fluids. Erythromycin ointment as directed. Apply ice to the affected area for 20 minutes at a time, as needed for pain and swelling. Follow-up with an fire marshal within 24-48 hours. Return to the emergency room for worsening symptoms. Med/Other Pt SpecificInfo: Prescription(s) given Scripts Erythromycin Opth Oint (Erythromycin Opth Oint) 5 Mg/Gm Oint 1 APPLIC LEFT EYE QID for Infection, #1 TUBE 0 Refills Prov: Bright Aguilar MD 07/22/17 Disposition: 01 DISCHARGE HOME Condition: Stable Jennifer Mahan Jul 22, 2017 22:18
[2017-07-22] MEDS ORDERED: ERYTOIN10 LEFT EYE (22:19)
== END 2017-07-22 22:25 | disposition home or self-care (01) ==
LOC: PHEFT 20:37
DX: T15.92XA Foreign body on external eye, part unspecified, left eye, initial encounter (principal); X58.XXXA Exposure to other specified factors, initial encounter; J44.9 Chronic obstructive pulmonary disease, unspecified
CPT/HCPCS: 65220